=== PATIENT | female | born 1960 | race Caucasian/White ===

== ENCOUNTER 2021-01-07 11:20 | Outpatient (REF) | payer OTHER, SELFPAY ==
[2021-01-07 14:32] LABS: C Reactive Protein 0.23 mg/dL (< or = 0.50); Rheumatoid Factor < 15.0 IU/mL (<15.0)
[2021-01-07 15:16] LABS: Erythrocyte Sedimentation Rate 7 MM/HR (0-20)
[2021-01-09 13:26] LABS: ANA Pattern 2 Nuclear, Nucleolar; ANA Pattern 3 Nuclear, Homogeneous; Anti Nuclear Antibody Screen POSITIVE (NEGATIVE)
[2021-01-13 13:27] LABS: HLA B27 Negative (Negative)
== END 2021-01-07 11:21 | disposition home or self-care (01) ==
LOC: HO.WFDLDS 11:20
PROVIDERS: PCP Pediatrics; Visit Provider Podiatrist
DX: Z13.89 Encounter for screening for other disorder (principal)
CPT/HCPCS: 36415; 85652; 86038; 86039; 86140; 86431; 86812

== ENCOUNTER 2023-01-19 09:29 | Outpatient (AMB) | payer OTHER, SELFPAY ==
[2023-01-19 09:45] VITALS: BP 116/64; PULSE 72; RESP 13; TEMP 36.6; O2SAT 99; BMI 26.6
--- NOTE | 2023-01-19 09:45 | AM.OFFWIN_ITS ---
Intake Vital Signs 01/19/23 09:45 Height 5 ft 3 in Weight 150 lb 4 oz BMI 26.6 BP 116/64 Blood Pressure Location Lt brachial Position Sitting Respiration 13 Pulse 72 Pulse Source Pulse Oximeter Temp 97.8 F Temp Source Temporal Artery Scan Pulse Oximetry (%) 99 Oxygen Delivery Method Room Air Intake Visit Reasons: Nausea,joint pain Patient Tobacco Use Status: Former Tobacco user Pediatric Surgeon Required: No Accompanied by: Self / Same As Patient Allergies No Known Allergies Allergy (Verified 01/19/23 10:53) Medication List - Last Reconciled 01/19/23 by Gaston Fernandez, YUDITH apremilast (Otezla Starter) 0 ea PO guselkumab (Tremfya) mg subcut Do you need a note to return to daycare/school/sports/work: No HPI HPI Comments History of Present Illness Details 62 y/o female presents with c/o achy p ain to her to both legs, from upper thighs to knees, worse at night. She notes that the pain is intermittent and not her usual arthritis pain and has been ongoing for the past 5 days. She is on Otezla. She takes ibuprofen as needed. She reports h/o arthritis and followed by rheumatology at [facility]. She denies tingling, numbness, or loss of sensation. She denies fever, chills, body aches, fatigue, or weakness. [facility] Social History Patient Tobacco Use Status: Former Tobacco user Review of Systems Const Details: Const Denies chills, Denies fatigue, Denies fever(s), Denies headache(s) and Denies weakness ENT Denies change in vision, Denies dizziness, Denies headache(s), Denies hearing loss, Denies nasal congestion, Denies sinus pain, Denies sinus pressure and Denies sore throat Resp Denies cough, Denies dyspnea, Denies wheezing and Denies other (shortness of breath) Cardio Denies chest pain, Denies lightheadedness, Denies dyspnea and Denies other (palpitations) Musc Reports as per HPI Neuro Denies dizziness, Denies headache(s), Denies numbness, Denies tingling and Denies weakness Psych Denies anxiety, Denies depression, Denies memory?loss Endo Denies fatigue Aller/Immun Denies wheezing Physical Exam Vital Signs: Last Vital Signs Temp 97.8 F 01/19/23 09:45 Pulse 72 01/19/23 09:45 Resp 13 01/19/23 09:45 BP 116/64 01/19/23 09:45 Pulse Ox 99 01/19/23 09:45 Oxygen Delivery Method Room Air 01/19/23 09:45 BMI result Body Mass Index 26.6 Const Other: Const General: well developed; No acute distress Nutritional Appearance: well nourished Orientation/consciousness: patient oriented x3 HEENT Head: Yes normocephalic and Yes atraumatic Eyes General: appearance normal, both eyes and all related structures Pupils: Equal, round and reactive pupils present EOM: EOMs intact bilaterally Resp Effort & Inspection: normal respiratory effort Auscultation: clear to auscultation bilaterally Cardio Rate: regular rate Rhythm: regular rhythm Heart sounds: S1 normal heart sound present, S2 normal heart sound present, no gallops, no murmurs and no rub Bruits: no abdominal aortic bruits and no carotid bruits Back/Spine/Pelvis Back: no CVA tenderness Cervical Spine: cervical ROM normal and No Cervical spine tenderness Thoracic/Lumbar Spine: thoraco-lumbar ROM normal, No pain with thoraco-lumbar ROM, No thoracic spinal tenderness and No lumbar spinal tenderness Extrem General: Yes normal to inspection, No edema and No calf tenderness Negative straight leg raise bilaterally Neuro General: patient oriented x3 and gait normal, no focal neuro deficit Cranial nerves: Yes Equal, round and reactive pupils present Psych Affect: normal affect Assessment & Plan Assessment & Plan (1) Bilateral lower extremity pain: Code(s): M79.604 - Pain in right leg; M79.605 - Pain in left leg Plan: Reports intermittent bilateral lower extremity pain for the past 5 days Likely arthritis Continue current treatment regimen Ibuprofen or Tylenol as needed Follow-up with PCP and Rheumatology if symptoms persist or worsens Verbalized understanding and agreed with treatment plan. Coding Level of Care Code Est Pt Level 2 (33239) Diagnoses Bilateral lower extremity pain M79.604; M79.605
== END 2023-01-19 11:35 | disposition home or self-care (01) ==
LOC: HO.HMGWIW 09:29
PROVIDERS: PCP Internal Medicine
DX: M79.604 Pain in right leg (principal); M79.605 Pain in left leg
CPT/HCPCS: 99212